=== PATIENT | male | born 1960 | race Caucasian/White ===

== ENCOUNTER 2017-07-11 19:38 | Emergency (ER) | payer OTHER ==
[~2017-07-11] VITALS: Ht 172.7 cm; Wt 83.4 kg
[~2017-07-11 19:38] MED LIST: CEPH500C3 PO; XANA0.5T PO
[2017-07-11 20:12] VITALS: BP 119/80; PULSE 80; RESP 16; TEMP 98.1; O2SAT 96
[2017-07-11] MEDS ORDERED: LEVO50TA4 PO (20:44)
[2017-07-11] MEDS ORDERED: KETOROLAC TROMETHAMINE 60 MG/2 ML (IM) VIAL IM ONE (21:00)
[2017-07-11] MEDS ORDERED: ONDANSETRON ODT 4 MG TAB PO ONE (21:00)
[2017-07-11] MEDS ORDERED: MORPHINE SULFATE 4 MG/ML INJ IM ONE (21:00)
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
[2017-07-11] MEDS ORDERED: ROBA500T PO (21:48)
[2017-07-11] MEDS ORDERED: DICL75TA PO (21:48)
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
== END 2017-07-11 22:14 | disposition home or self-care (01) ==
LOC: PHEFT 19:38
DX: S13.4XXA Sprain of ligaments of cervical spine, initial encounter (principal); T14.8 Other injury of unspecified body region; Y04.0XXA Assault by unarmed brawl or fight, initial encounter; Y92.009 Unspecified place in unspecified non-institutional (private) residence as the place of occurrence of the external cause; Z72.0 Tobacco use
CPT/HCPCS: 71101; 72125; 73030; 96372; 99285; J1885; J2270

== ENCOUNTER 2017-10-28 19:44 | Emergency (ER) | payer OTHER ==
[~2017-10-28 19:44] MED LIST changes: -CEPH500C3 PO; +DICL75TA PO; +LEVO50TA4 PO; +ROBA500T PO; -XANA0.5T PO
[2017-10-28 19:45] VITALS: BP 150/89; PULSE 77; RESP 16; TEMP 97.8; O2SAT 98
[2017-10-28] MEDS ORDERED: CLON.5 PO (20:04)
[2017-10-28] MEDS ORDERED: INHALER FOR COPD INH (20:04)
[2017-10-28 20:05] VITALS: BP 116/90; PULSE 73; RESP 16; O2SAT 96
[2017-10-28] MEDS ORDERED: LORazepam 2 MG/ML VIAL IM ONE (20:30)
[2017-10-28] MEDS ORDERED: HYDROmorphone HCL PF 2 MG/ML VIAL IM ONE (20:30)
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
== END 2017-10-28 21:11 | disposition home or self-care (01) ==
LOC: NEPD 19:44
DX: M54.2 Cervicalgia (principal); G89.28 Other chronic postprocedural pain; F17.210 Nicotine dependence, cigarettes, uncomplicated; Z85.89 Personal history of malignant neoplasm of other organs and systems; Z92.3 Personal history of irradiation
CPT/HCPCS: 96372; 99284; J1170; J2060

== ENCOUNTER 2017-11-12 09:06 | Observation (INO) | payer OTHER ==
[~2017-11-12] VITALS: Ht 175.3 cm; Wt 85.0 kg
[2017-11-12] VITALS (8 sets, daily range): BP systolic 111–130; BP diastolic 63–85; PULSE 60–70; RESP 18; TEMP 98–98.1; O2SAT 94–98
[~2017-11-12 09:06] MED LIST changes: +CLON.5 PO; -DICL75TA PO; +INHALER FOR COPD INH; -ROBA500T PO
[2017-11-12] MEDS ORDERED: HYDR-3288 PO (09:24)
[2017-11-12] MEDS ORDERED: SODIUM CHLORIDE 0.9% FLUSH 10 ML FLUSH IVF PRN (09:45)
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
--- NOTE | 2017-11-12 09:56 | RADRPT ---
EXAM DATE/TIME: 11/12/2017 09:42 [facility] COMPARISON: CHEST SINGLE AP, November 07, 2014, 19:43. INDICATIONS : Chest pain and short of breath. MEDICAL HISTORY : Chronic obstructive pulmonary disease. SURGICAL HISTORY : None. ENCOUNTER: Initial ACUITY: 1 day PAIN SCORE: 5/10 LOCATION: Bilateral chest FINDINGS: A single view of the chest demonstrates the lungs to be symmetrically aerated without evidence of mas s, infiltrate or effusion. The cardiomediastinal contours are unremarkable. Osseous structures are intact. CONCLUSION: No acute disease. Brady Martinez MD on November 12, 2017 at 9:53 Board Certified Radiologist. This report was verified electronically.
[2017-11-12 10:13] LABS: AUTOMATED NEUTROPHIL # 2.8 TH/MM3 (1.8-7.7); BASOPHIL % 0.7 % (0.0-2.0); EOSINOPHIL # 0.2 TH/MM3 (0-0.4); EOSINOPHIL % 3.8 % (0.0-4.0); HEMOGLOBIN 15.9 GM/DL (13.0-17.0); LYMPH % 33.3 % (9.0-44.0); LYMPHOCYTE # 1.8 TH/MM3 (1.0-4.8); MEAN CELL VOLUME 90.8 FL (80.0-100.0); MEAN CORPUSCULAR HEMOGLOBIN 31.4 PG (27.0-34.0); MEAN CORPUSCULAR HGB CONC 34.6 % (32.0-36.0); MEAN PLATELET VOLUME 8.7 FL (7.0-11.0); MONO % 9.9 % (0.0-8.0); MONOCYTE # 0.5 TH/MM3 (0-0.9); NEUT % 52.3 % (16.0-70.0); PLATELET COUNT 254 TH/MM3 (150-450); RED BLOOD COUNT 5.07 MIL/MM3 (4.50-5.90); WHITE BLOOD COUNT 5.3 TH/MM3 (4.0-11.0)
[2017-11-12 10:21] LABS: PROTHROMBIN TIME - PATIENT 10.1 SEC (9.8-11.6)
[2017-11-12 10:29] LABS: ALBUMIN 3.6 GM/DL (3.4-5.0); ALT (GPT) 26 U/L (12-78); AST (GOT) 20 U/L (15-37); BICARBONATE 22.9 MEQ/L (21.0-32.0); BLOOD UREA NITROGEN 13 MG/DL (7-18); CALCIUM 8.7 MG/DL (8.5-10.1); CHLORIDE 106 MEQ/L (98-107); CREATININE 0.66 MG/DL (0.60-1.30); GLOMERULAR FILTRATION RATE 125 ML/MIN (>89); GLUCOSE,RANDOM 105 MG/DL (74-106); LIPASE 125 U/L (73-393); SODIUM (NA) 138 MEQ/L (136-145)
[2017-11-12 10:32] LABS: ALKALINE PHOSPHATASE 45 U/L (45-117); TOTAL BILIRUBIN ADULT 0.8 MG/DL (0.2-1.0); TROPONIN I LESS THAN 0.02 NG/ML (0.02-0.05)
[2017-11-12] MEDS ORDERED: SODIUM CHLORIDE 0.9% FLUSH 10 ML FLUSH IV FLUSH PRN (12:15)
[2017-11-12] MEDS ORDERED: NITROGLYCERIN 0.4 MG SL 25 TABS/BTL SL PRN (12:15)
[2017-11-12] MEDS ORDERED: ONDANSETRON HCL 4 MG/2 ML VIAL IV PUSH PRN (12:15)
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
[2017-11-12] MEDS ORDERED: ALPRAZolam 0.5 MG TAB PO ONE (14:30)
[2017-11-12 14:32] LABS: TROPONIN I LESS THAN 0.02 NG/ML (0.02-0.05)
[2017-11-12 16:22] LABS: TROPONIN I 0.02 NG/ML (0.02-0.05)
[2017-11-12] MEDS: ACETAMINOPHEN/HYDROcodone 325 MG/7.5 MG TAB PO PRN ×2 (18:46→23:29)
[2017-11-12] MEDS ORDERED: ALPRAZolam 0.5 MG TAB PO PRN (19:00)
--- NOTE | 2017-11-12 20:59 | EKG ---
Date Performed: 11/12/2017 Time Performed: 09:12:58 PTAGE: 57 years EKG: Sinus rhythm NORMAL ECG PREVIOUS TRACING : 11/08/2014 02.18 DOCTOR: Ros Ford Interpretating Date/Time 11/12/2017 20:57:59
[2017-11-12] MEDS: SODIUM CHLORIDE 0.9% FLUSH 10 ML FLUSH IV FLUSH SCH (21:14)
[2017-11-13 00:41] VITALS: PULSE 57
[2017-11-13 03:11] VITALS: BP 112/72; PULSE 60; RESP 18; TEMP 97.9; O2SAT 97
[2017-11-13 04:19] VITALS: PULSE 57
[2017-11-13 08:00] VITALS: PULSE 81
[2017-11-13] MEDS: SODIUM CHLORIDE 0.9% FLUSH 10 ML FLUSH IV FLUSH SCH (08:22)
[2017-11-13 08:23] VITALS: BP 111/72; PULSE 65; RESP 12; TEMP 96.6; O2SAT 96
[2017-11-13] MEDS ORDERED: ASPIRIN 325 MG TAB PO SCH (09:00)
[2017-11-13] MEDS ORDERED: REGADENOSON INJ 0.4 MG/5 ML SYR ONE (09:43)
--- NOTE | 2017-11-13 11:03 | RADRPT ---
EXAM DATE/TIME: 11/13/2017 09:21 [facility] COMPARISON: No previous studies available for comparison. INDICATIONS : Left sided chest pain. Angina. DOSE: 26.2 mCi Tc99m Myoview at stress. 8.6 mCi Tc99m Myoview at rest. 0.4 mg Lexiscan STRESS SYMPTOMS: Flush and short of breath. EJECTION FRACTION: 65% MEDICAL HISTORY : Hypothyroidism. Hypertension. Head cancer. SURGICAL HISTORY : Colon resection. ENCOUNTER: Initial ACUITY: 1 day PAIN SCALE: 4/10 LOCATION: Left chest TECHNIQUE: The patient underwent pharmacologic stress with infusion of prescribed dose. Continuous ECG tracing was monitored during stress. Gated SPECT imaging was performed after stress and conventional SPECT i maging was performed at rest. The examination was performed on a SPECT/CT scanner, both attenuation and non-corrected datasets were reviewed. FINDINGS: DISTRIBUTION: The maximum perfused segment at stress is in the anterior wall. There is a summed stress score of zer o. PERFUSION STUDY: The pattern of perfusion at stress is within normal limits. GATED STUDY: There is intact wall motion and thickening without hypokinetic or dyskinetic segments. CONCLUSION: 1. Normal wall motion and calculated ejection fraction. 2. No fixed or reversible defects to suggest ischemia or infarction. RISK CATEGORY: Low (<1% Annual Mortality Rate) Martínez Blackwell MD on November 13, 2017 at 10:59 Board Certified Radiologist. This report was verified electronically.
--- NOTE | 2017-11-13 11:19 | HHI.DCPOC ---
Discharge Care Plan Diagnosis: (1) Chest pain (2) Tobacco abuse (3) Anxiety Goals to Promote Your Health * To prevent worsening of your condition and complications * To maintain your health at the optimal level Directions to Meet Your Goals Take your medications as prescribed Follow your dietary instruction Follow activity as directed Keep your appointments as scheduled Take your immunizations and boosters as scheduled If your symptoms worsen call your PCP, if no PCP go to Urgent Care Center or Emergency Room Smoking is Dangerous to Your Health. Avoid second hand smoke Call the 24-hour hour crisis hotline for domestic abuse at Arian Jeffrey Nov 13, 2017 11:18
--- NOTE | 2017-11-14 15:56 | EKG ---
Date Performed: 11/12/2017 Time Performed: 15:43:05 PTAGE: 57 years EKG: SINUS BRADYCARDIA WITH FIRST DEGREE AV BLOCK ABNORMAL ECG PREVIOUS TRACING : 11/12/2017 13.32 Since previous tracing, no significant change noted DOCTOR: Julio Brunner Interpretating Date/Time 11/14/2017 15:56:00
--- NOTE | 2017-11-14 15:58 | EKG ---
Date Performed: 11/12/2017 Time Performed: 13:32:03 PTAGE: 57 years EKG: SINUS BRADYCARDIA WITH FIRST DEGREE AV BLOCK ABNORMAL ECG INTERPRETATION BASED ON A DEFAULT AGE OF 40 YEARS PREVIOUS TRACING : 11/12/2017 09.12 Since previous tracing, no significant change noted DOCTOR: Julio Brunner Interpretating Date/Time 11/14/2017 15:57:50
--- NOTE | 2017-11-14 16:11 | TR ---
Date Performed: 11/13/2017 Time Performed: 09:45:27 DOCTOR: Julio Brunner DRUG LIST: CLINICAL HISTORY: ANGINA REASON FOR TEST: Angina REASON FOR ENDING: OBSERVATION: CONCLUSION: Lexiscan stress test was performed under standard four minute protocol. Radionuclid e was injected one minute prior to ending the test. No electrocardiographic abormalities were present to suggest ischemia. Nuclear imaging and interpretation are pending. COMMENTS:
== END 2017-11-13 12:25 | disposition home or self-care (01) ==
LOC: NEPE 09:06 → NEDA 10:48 → NEPHCDU 13:50
PROVIDERS: ADMIT Internal Medicine Cardiovascular Disease; ATTEND Internal Medicine Cardiovascular Disease
DX: R07.89 Other chest pain (principal); R00.1 Bradycardia, unspecified; I45.10 Unspecified right bundle-branch block; R94.31 Abnormal electrocardiogram [ECG] [EKG]; R42 Dizziness and giddiness; R06.02 Shortness of breath; I10 Essential (primary) hypertension; I20.9 Angina pectoris, unspecified; K75.9 Inflammatory liver disease, unspecified; J44.9 Chronic obstructive pulmonary disease, unspecified; E03.9 Hypothyroidism, unspecified; K21.9 Gastro-esophageal reflux disease without esophagitis; F41.9 Anxiety disorder, unspecified; M54.2 Cervicalgia; M25.511 Pain in right shoulder; G89.29 Other chronic pain; F12.90 Cannabis use, unspecified, uncomplicated; F17.210 Nicotine dependence, cigarettes, uncomplicated; Z79.899 Other long term (current) drug therapy; Z85.89 Personal history of malignant neoplasm of other organs and systems; Z88.5 Allergy status to narcotic agent; Z88.6 Allergy status to analgesic agent
CPT/HCPCS: 71045; 78452; 80053; 82550; 83690; 84484; 85025; 85610; 85730; 93005; 93017; 99285; A9502; G0378; J2785